=== PATIENT | male | born 2000 | race Caucasian/White ===

== ENCOUNTER → 2020-12-19 | Outpatient (CLI) | payer OTHER | LOC: LABNPT 06:59 | PROVIDERS: ATTEND Podiatrist | DX: Z01.812 Encounter for preprocedural laboratory examination (principal); Z20.822 Contact with and (suspected) exposure to COVID-19 | CPT/HCPCS: 87635 ==

== ENCOUNTER 2021-03-09 05:30 | Outpatient (RCR) | payer BC, OTHER ==
[~2021-03-09] VITALS: Ht 170.2 cm; Wt 74.3 kg
[~2021-03-09 05:30] MED LIST: CETI-187 PO; OMEP40CA6 PO
== END 2021-03-09 09:26 | disposition home or self-care (01) ==
LOC: PREOP 05:30
PROVIDERS: ATTEND Surgery
DX: Z20.822 Contact with and (suspected) exposure to COVID-19 (principal)
CPT/HCPCS: 87635

== ENCOUNTER 2021-03-11 11:00 | Day surgery (SDC) | payer BC, OTHER ==
[~2021-03-11] VITALS: Ht 170.2 cm; Wt 74.3 kg
[2021-03-11] VITALS (9 sets, daily range): BP systolic 110–130; BP diastolic 54–86
[2021-03-11] MEDS ORDERED: LACTATED RINGERS 1,000 ML IV STA (11:03)
[2021-03-11] MEDS ORDERED: LACTATED RINGERS 1,000 ML IV ONE (11:13)
[2021-03-11] MEDS ORDERED: HURRICAINE EXT TUBE (BENZOCAINE) XX PRN (11:15)
[2021-03-11] MEDS ORDERED: LIDOCAINE JELLY 2% 6 ML SYRINGE MM PRN (11:15)
--- NOTE | 2021-03-11 11:37 | Progress Note-Pre Operative ---
Pre-Operative Progress Note H&P Reviewed The H&P was reviewed, patient examined and no changes noted. Date Seen by Provider: Mar 11, 2021 Time Seen by Provider: 11:00 Date H&P Reviewed: Mar 11, 2021 Time H&P Reviewed: 11:00 Pre-Operative Diagnosis: BONIFACIO PERLA MD Mar 11, 2021 11:37
[2021-03-11] MEDS ORDERED: PANT40TA2 PO (11:38)
--- NOTE | 2021-03-11 11:38 | Discharge Inst-Surgical ---
D/C Lap Instructions-KIDO New, Converted, or Re-Newed RX: RX on Chart Follow Up Activity as tolerated High Fiber Diet 25g or more per day Avoid Alcohol, Caffeine, Spicy [place] and Acid foods. Drink 64 fluid oz or more of fluids per day. Symptoms to Report: Fever over 101 degree F, Nausea/Vomiting If any problems/questions: Contact your physician or go to Emergency Room BONIFACIO HANSON MD Mar 11, 2021 11:38
[2021-03-11] MEDS ORDERED: ONDANSETRON 4 MG/2 ML (SDV) Z0FRAN IVP PRN (11:45)
[2021-03-11] MEDS ORDERED: MIDAZOLAM 2 MG/2 ML (VERSED) VIAL ONE (12:18)
[2021-03-11] MEDS ORDERED: proPOfol 200 MG/20 ML (DIPRIVAN) VIAL IV ONE ×2 (12:18→12:19)
--- NOTE | 2021-03-11 12:50 | Progress Note-Post Operative ---
Post-Operative Progess Note Surgeon (s)/Stitching Department Supervisor (s) Surgeon BONIFACIO HANSON MD Stitching Department Supervisor: none Pre-Operative Diagnosis GERD Post-Operative Diagnosis reflux esophagitis(stage 2-3), moderate HH(4cm), moderate gastritis. Procedure & Operative Findings Date of Procedure 03/11/21 Procedure Performed/Findings EGD with bx. Anesthesia Type mac Estimated Blood Loss Estimated blood loss (mL): minmal Specimens/Packing Specimens Removed ge jxn, antrum BONIFACIO HANSON MD Mar 11, 2021 12:50
--- NOTE | 2021-03-11 15:02 | Anesthesia-General Post-Op ---
MAC Patient Condition Mental Status/LOC: Same as Preop Cardiovascular: Satisfactory Nausea/Vomiting: Absent Respiratory: Satisfactory Pain: Controlled Complications: Absent Post Op Complications Complications None Follow Up Care/Instructions Patient Instructions None needed. Anesthesiology Discharge Order Discharge Order Patient is doing well, no complaints, stable vital signs, no apparent adverse anesthesia problems. No complications reported per nursing. TAMARA FARRAR CRNA Mar 11, 2021 15:02
--- NOTE | 2021-03-11 17:08 | OPERATIVE REPORT ---
DATE OF SERVICE: 03/11/2021 ATTENDING PRIMARY CARE PHYSICIAN: Dr. Bertha Gaona. PREOPERATIVE DIAGNOSIS: Gastroesophageal reflux disease. POSTOPERATIVE DIAGNOSES: Reflux esophagitis, between stage II to III; moderate size hiatal hernia, 4 cm in size; moderate gastritis. PROCEDURE: EGD with biopsy. SURGEON: Bonifacio Hanson MD ANESTHESIA: Monitored anesthesia care. ESTIMATED BLOOD LOSS: Minimal. FINDINGS: Reflux esophagitis, between stage II to III; moderate size hiatal hernia, 4 cm in size; moderate gastritis. DISPOSITION: The patient tolerated the procedure well. INDICATIONS: The patient is a 20-year-old male who is a college student. He reports that he has had persistent issues with epigastric burning sensation as well as pain as well as reflux and regurgitation. He was recently started on Protonix. He does admit to drinking significant amounts of caffeinated beverages. He reports occasional alcohol; however, not frequent. He does not report any smoking as well as no chewing of tobacco. Despite taking Protonix, he continues to have symptoms. DESCRIPTION OF PROCEDURE: The patient was brought to the endoscopy suite, laid in the left lateral decubitus position. After adequate IV pain and sedative medications and monitored anesthesia care, the mouthpiece was applied. The endoscope was placed in the mouth, visualizing the pharynx and hypopharyngeal region. Vocal cords, epiglottis and vallecula identified and appeared to be normal. The endoscope was then gently intubated into the esophageal opening and esophagus insufflated. The endoscope was then advanced to the first, second and third portion of esophagus at the level of the GE junction. Significant reflux esophagitis between stage II to III identified. A biopsy was taken with forceps with visualization of good hemostasis. The endoscope was then advanced in the stomach and the endoscope retroflexed, visualizing a moderate size hiatal hernia approximately 4 cm in size. This is the likely cause of his significant reflux. Moderate gastritis was noted. No formal ulcerations, polyps, or any neoplasms. A biopsy was taken of the antrum to rule out H. pylori with visualization of good hemostasis. The endoscope was then advanced to the pylorus and the first and second portion of the duodenum, which appeared normal with no ulcerations or any distal obstructions. The endoscope was then slowly withdrawn while taking a second look and suctioning of residual air with no additional findings. The patient tolerated the procedure well. We will recommend the necessary lifestyle and diet accommodation including small and more frequent meals, avoidance of eating at night as well as head elevation while lying supine. He also needs to avoid caffeinated beverages, alcoholic beverages as well as spicy, greasy and acidic foods. He is on Protonix daily now; however, we will also add omeprazole 40 mg to be taken at a different time during the day as well. At this time, we will recommend conservative medical management. However, later on if he continues to be symptomatic due to the hiatal hernia, he may be a candidate for hiatal hernia repair; however, before proceeding with this, we would get an esophageal manometry to rule out an esophageal dysmotility disorder. Job ID: [id number] DocumentID: [id number] Dictated Date: 03/11/2021 12:46:59 Wash Driller Helper Date: 03/11/2021 17:07:29 Dictated By: BONIFACIO HANSON MD
== END 2021-03-11 13:30 | disposition home or self-care (01) ==
LOC: SDC 11:00 → ENDO 13:30
PROVIDERS: ATTEND Surgery
DX: K21.00 Gastro-esophageal reflux disease with esophagitis, without bleeding (principal); K44.9 Diaphragmatic hernia without obstruction or gangrene; K29.70 Gastritis, unspecified, without bleeding; Z79.899 Other long term (current) drug therapy; Z90.89 Acquired absence of other organs; Z82.49 Family history of ischemic heart disease and other diseases of the circulatory system
CPT/HCPCS: 88305